=== PATIENT | female | born 1970 | race Caucasian/White ===

== ENCOUNTER 2017-08-19 10:55 | Inpatient (IN) | payer OTHER ==
[2017-08-19] MEDS ORDERED: methylPREDNISolone Sod Succ/PF 125 MG/2 ML VIAL ONE (11:41)
[2017-08-19] MEDS ORDERED: Albuterol Sulfate 1.25 MG/3 ML NEB ONE (12:14)
[2017-08-19 13:24] LABS: #Basophils 0.1 thou/uL (0.0-0.2); #Eosinphils 0.1 thou/uL (0.0-0.7); #Monocytes 0.4 thou/uL (0.11-0.59); #Neutrophils 7.2 thou/uL (1.40-6.50); %Basophils 0.6 % (0.0-1.0); %Eosinophils 1.7 % (0.0-10.0); %Lymphocytes 10.8 % (21.0-51.0); %Monocytes 4.8 % (0.0-10.0); %Neutrophils 82.1 % (42.0-75.0); Hemoglobin 17.8 g/dL (12.0-16.0); Mean Corpuscular HGB CONC 35.7 g/dL (32.0-36.0); Mean Corpuscular Hemoglobin 33.1 pg (27.0-31.0); Mean Corpuscular Volume 92.7 fl (81.0-99.0); Mean Platelet Volume 6.6 fL (7.4-10.4); Platelet Count 193 thou/uL (130-400); RBC Distribution Width 10.6 % (11.5-14.5); Red Blood Cell (RBC) Count 5.37 mill/uL (4.20-5.40); White Blood Cell (WBC) Count 8.8 thou/uL (4.8-10.8)
[2017-08-19 13:35] LABS: ALT (SGPT) 12 U/L (8-55); AST (SGOT) 13 U/L (5-34); Albumin 4.3 g/dL (3.5-5.0); Alkaline Phosphatase 67 U/L (40-150); Anion Gap 16 mmol/L (10-20); BUN (Urea Nitrogen) 10 mg/dL (7.0-18.7); Bilirubin, Total 0.8 mg/dL (0.2-1.2); Calc. Creatinine Clearance 0 mL/min (70-130); Calcium 9.7 mg/dL (7.8-10.44); Carbon Dioxide 23 mmol/L (22-29); Chloride 106 mmol/L (98-107); Estimated GFR-MDRD 79; Globulin 3.4 g/dL (2.4-3.5); Glucose 106 mg/dL (70-105); Potassium 4.1 mmol/L (3.5-5.1); Protein, Total 7.7 g/dL (6.0-8.3); Sodium 141 mmol/L (136-145)
[2017-08-19 13:39] LABS: CKMB 2.9 ng/mL (0-6.6); Troponin I Less than 0.010 ng/mL (< 0.028)
--- NOTE | 2017-08-19 13:48 | RAD ---
CHEST TWO VIEWS: 08/19/2017 COMPARISON: No prior films available for comparison. FINDINGS: The heart is normal in size. No lobar infiltrates or effusions are seen. The lungs are clear. The trachea is midline. IMPRESSION: No acute thoracic findings. POS: HOME
[2017-08-19] MEDS ORDERED: Acetaminophen 325 MG TAB PO PRN (14:43)
[2017-08-19] MEDS ORDERED: Ondansetron HCl/PF 4 MG/2 ML Vial IVP PRN (14:43)
[2017-08-19] MEDS ORDERED: Ondansetron ODT 4 MG TAB SL PRN (14:43)
[2017-08-19] MEDS ORDERED: Albuterol Sulfate 2.5 mg/3 ml Neb NEB PRN (14:44)
[2017-08-19 15:30] VITALS: BMI 22.6
--- NOTE | 2017-08-19 20:10 | HP ---
DATE OF ADMISSION: 08/19/2017 CHIEF COMPLAINT: Hypoxia. HISTORY OF PRESENT ILLNESS: A 47-year-old female who presented to [facility] Emergency Department earlier today with complaints of worsening upper respiratory symptoms over the last few days. She reports to have had clear rhinorrhea and a cough that has been intermittently productive along with subjective warmth and chills; however, this morning she felt to have tightness to her chest along with a mild dyspnea, which prompted her to present to the emergency department. Of note, the patient is a long time smoker, approximately 1 pack per day for the last 25 years. She has no formal diagnosis of COPD to this point. She was prescribed a nebulizer machine with nebules, which she has at home secondary to getting the flu at the end of last year. She states that she had not been using her nebulizer machine up until earlier today. In the emergency department, the patient notably had normal lab work and chest x-ray, however, remained hypoxic in the upper 80s even after nebulized treatments. EKG was normal. Due to her symptoms and noted hypoxia, she has been admitted for further care. The patient was formally followed by Dr. Kamara and has most recently been seen by TIM Bro in [place]. PAST MEDICAL HISTORY: Hypothyroidism, endometriosis. PAST SURGICAL HISTORY: x3, cholecystectomy, laparoscopy for removal of the right ovary due to cyst, and uterine ablation for endometriosis. SOCIAL HISTORY: She is a smoker, 1 pack per day for the last 25 years. Social alcohol use with no illicit drug use. 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 FAMILY HISTORY: Noncontributory. CURRENT MEDICATIONS: Levothyroxine 88 mcg p.o. daily. REVIEW OF SYSTEMS: General: The patient reports subjective warmth and chills. Ear, Nose, and Throat: Complains of nasal drainage and congestion. Cardiovascular: Denies chest pain or palpitations. Respiratory: Complains of shortness of breath and cough. Gastrointestinal: Denies abdominal pain, nausea , vomiting, diarrhea or constipation. Genitourinary: Denies dysuria. Musculoskeletal: Denies joint pain or swelling. Dermatologic: Denies rash. Neurologic: Denies headache. IMAGING: Chest x-ray shows no acute thoracic findings. The heart is normal in size. No lobar infiltrates or effusions are seen. Lungs are clear. Trachea is midline. LABORATORY DATA: White blood cell count is 8.8, hemoglobin is 17.8, hematocrit is 49.8, platelets are 193. Sodium 141, potassium is 4.1, BUN is 10, creatinine is 0.78, GFR 79. Glucose is 106. Normal LFTs, normal cardiac enzymes. BNP is 55.1. PHYSICAL EXAMINATION: VITAL SIGNS: Temperature is 98.4, pulse is 99, respiratory rate is 20, oxygen is 92% on 3 liters, blood pressure 122/57. GENERAL: The patient is alert and oriented, in no acute distress. HEENT: Normocephalic and atraumatic. Extraocular muscles are intact. Pupils are equal, round, and reactive to light. There is mild nasal congestion. No oropharyngeal erythema. She has O2 nasal cannula in place. NECK: Supple, with no lymphadenopathy. CARDIOVASCULAR: Regular rate and rhythm, normal S1, S2. No murmurs, rubs or gallops. RESPIRATORY: Noted rhonchi on the right with a faint expiratory wheeze in the left. No respiratory distress or accessory muscle use. ABDOMEN: Soft, nontender to palpation. No organomegaly. Normal bowel sounds. EXTREMITIES: No clubbing, cyanosis or edema. She has SCDs in place. NEUROLOGIC: Nonfocal. Cranial nerves II-XII are grossly intact. ASSESSMENT AND PLAN: 1. Hypoxia. We will provide supplemental O2 with a plan to wean as tolerated, but to keep oxygen saturation greater than 92%. We will provide nebulized treatments and IV Solu-Medrol. 2. Reactive airway disease. The patient has no formal diagnosis of chronic obstructive pulmonary disease and may consider pulmonary function testing as an outpatient. She does have nebulized medication at home for p.r.n. use. We will provide her an incentive spirometer. 3. Smoker. I have encouraged the patient to work on smoking cessation. She is amenable to placement of a nicotine patch. 4. Hypothyroidism. We will continue the patient's usual levothyroxine dose 88 mcg p.o. daily. 5. Prophylaxis. The patient has sequential compression devices and will receive Lovenox for prevention of deep venous thrombosis and pulmonary embolism. We will also provide famotidine. CODE STATUS: FULL. MTDD
[2017-08-19] MEDS: Enoxaparin Sodium 30 MG/0.3 ML SYRINGE SC SCH (21:52)
[2017-08-19] MEDS: Famotidine 20 MG TAB PO SCH (21:53)
[2017-08-19] MEDS: methylPREDNISolone Sod Succ/PF 125 MG/2 ML VIAL IVP SCH (22:03)
[2017-08-20] MEDS: methylPREDNISolone Sod Succ/PF 125 MG/2 ML VIAL IVP SCH ×3 (06:37→22:21)
[2017-08-20] MEDS: Levothyroxine Sodium 88 MCG TAB PO SCH (06:37)
[2017-08-20] MEDS: Famotidine 20 MG TAB PO SCH ×2 (08:35→20:49)
[2017-08-20] MEDS: Nicotine 21 MG PATCH TD SCH (08:36)
[2017-08-20] MEDS ORDERED: Enoxaparin Sodium 30 MG/0.3 ML SYRINGE SC SCH (09:00)
--- NOTE | 2017-08-20 16:05 | RAD ---
CHEST TWO VIEWS: 08/20/17 Comparison is made with the 08/19 study. There is no substantial difference between the two studies. N o major lobar infiltrate is seen. The lungs appear about the same today as yesterday. The heart is no rmal in size. There are no effusions or congestion. The trachea is midline. IMPRESSION: No adverse change since yesterday. POS: HOME
[2017-08-20] MEDS: Enoxaparin Sodium 30 MG/0.3 ML SYRINGE SC SCH (20:49)
[2017-08-20] MEDS: guaiFENesin ER 600 MG TAB PO SCH (20:49)
[2017-08-20] MEDS ORDERED: Loratadine 10 MG TAB PO SCH (21:00)
[2017-08-20] MEDS ORDERED: FLU VACC QS2017-18 36 mo. & older 0.5 ML SYRINGE IM ONE (21:00)
[2017-08-21 05:49] LABS: Hemoglobin 16.6 g/dL (12.0-16.0)
[2017-08-21 05:50] LABS: Platelet Count 210 thou/uL (130-400)
[2017-08-21] MEDS: methylPREDNISolone Sod Succ/PF 125 MG/2 ML VIAL IVP SCH ×3 (06:07→21:54)
[2017-08-21] MEDS: Levothyroxine Sodium 88 MCG TAB PO SCH (06:07)
[2017-08-21] MEDS: Loratadine 10 MG TAB PO SCH (08:13)
[2017-08-21] MEDS: Nicotine 21 MG PATCH TD SCH (08:13)
[2017-08-21] MEDS: guaiFENesin ER 600 MG TAB PO SCH ×2 (08:13→21:54)
[2017-08-21] MEDS: Famotidine 20 MG TAB PO SCH ×2 (08:13→21:54)
[2017-08-21] MEDS ORDERED: Mometasone/Formoterol 60 PUFF AER INH SCH (14:20)
[2017-08-21] MEDS: Mometasone/Formoterol 60 PUFF AER INH SCH (18:46)
[2017-08-21] MEDS: Enoxaparin Sodium 30 MG/0.3 ML SYRINGE SC SCH (21:53)
[2017-08-21] MEDS ORDERED: Sodium Chloride 0.65% Nasal 44 ML BOT EA NARE PRN (22:37)
[2017-08-21] MEDS: Fluticasone Propionate Nasal Spray 16 gm Bottle NASAL SCH (22:56)
[2017-08-22 06:02] VITALS: BP 128/55
[2017-08-22] MEDS: Levothyroxine Sodium 88 MCG TAB PO SCH (06:03)
[2017-08-22] MEDS: methylPREDNISolone Sod Succ/PF 125 MG/2 ML VIAL IVP SCH ×2 (06:04→14:10)
[2017-08-22] MEDS: Mometasone/Formoterol 60 PUFF AER INH SCH (06:12)
[2017-08-22] MEDS: Loratadine 10 MG TAB PO SCH (08:31)
[2017-08-22] MEDS: Famotidine 20 MG TAB PO SCH (08:31)
[2017-08-22] MEDS: guaiFENesin ER 600 MG TAB PO SCH (08:31)
[2017-08-22] MEDS: Nicotine 21 MG PATCH TD SCH (08:34)
[2017-08-22] MEDS: Fluticasone Propionate Nasal Spray 16 gm Bottle NASAL SCH (08:43)
--- NOTE | 2017-08-22 13:54 | DIS ---
DATE OF ADMISSION: 08/19/2017 DATE OF DISCHARGE: 08/22/2017 ADMISSION DIAGNOSES: Hypoxia, reactive airway disease, chronic smoker. SECONDARY DIAGNOSIS: Hypothyroidism. PROCEDURES: Chest x-ray on 08/19/2017 showed no acute thoracic findings. Chest x-ray on 08/20/2017 showed no adverse change since yesterday. HOSPITAL COURSE: A 47-year-old female presented to [facility] Emergency Department with complaints of worsening upper respiratory symptoms including persistent cough, rhinorrhea, and dyspnea with a sensation of tightness to her chest. She is a smoker for the last 25 years, approximately 1 pack per day. She received breathing treatments in the emergency department; however, remained hypoxic in the 80s and thus was admitted. She was treated with IV Solu -Medrol, scheduled neb treatments and incentive spirometry. She was provided a nicotine patch and does express desire for smoking cessation. She was gradually weaned from her supplemental oxygen and was able to maintain her O2 sats greater than 92% on room air on day of discharge. She has no formal diagnosis of COPD and thus this can be pursued in an outpatient setting via PFT. She was started on Dulera in the hospital and will be continued on Anoro. In addition, she will complete an oral tapering steroid course and we will continue her nicotine patch as well. As noted, the patient was able to wean supplemental oxygen to room air and feels much improved and is now ready to return to her home. DISPOSITION: The patient will be discharged to her home and may follow up with myself in clinic next week. DISCHARGE MEDICATIONS: She will resume her usual medication of levothyroxine 88 mcg p.o. daily. New medications will be prednisone 20 mg 2 tabs x3 days followed by 1 tab x3 days, Anoro one inhalation daily and nicotine patch. MTDD
[2017-08-22 14:52] VITALS: TEMP 98.3
== END 2017-08-22 13:55 | disposition home or self-care (01) | DRG 203 ==
LOC: BURERS 10:55 → BURMED 13:50
PROVIDERS: ADMIT Family Medicine; ATTEND Family Medicine
DX: J45.909 Unspecified asthma, uncomplicated (principal); E03.9 Hypothyroidism, unspecified; R09.02 Hypoxemia; Z79.899 Other long term (current) drug therapy
CPT/HCPCS: 36415; 71046; 80053; 82553; 82565; 83880; 84484; 85014; 85018; 85025; 85049; 87804; 90471; 90682; 93005; 94640; 94664; 94760; 96374; A4216; G0008; J1650; J2405; J2930; J7620; Q2036

== ENCOUNTER 2023-05-23 11:48 | Emergency (ER) | payer OTHER ==
[2023-05-23] MEDS ORDERED: Bacitracin 1 PK ONE (12:03)
[2023-05-23] MEDS ORDERED: Boostrix 0.5 ML (Tdap) VIAL (>/=7 yrs of age) ONE (12:04)
== END 2023-05-23 12:13 | disposition home or self-care (01) ==
LOC: BURERS 11:48
DX: S80.812A Abrasion, left lower leg, initial encounter (principal); L25.9 Unspecified contact dermatitis, unspecified cause; F17.210 Nicotine dependence, cigarettes, uncomplicated; Z23 Encounter for immunization; W54.0XXA Bitten by dog, initial encounter
CPT/HCPCS: 90471; 90715

== ENCOUNTER 2023-08-04 10:58 | Emergency (ER) | payer BC, OTHER ==
[2023-08-04] MEDS ORDERED: Albuterol 2.5 MG (0.5 mL) NEB ONE (11:16)
[2023-08-04 12:25] LABS: Troponin I Less than 0.010 ng/mL (< 0.028)
[2023-08-04] MEDS ORDERED: cefTRIAXone (ROCEPHIN) 1 GM VIAL ONE (13:03)
== END 2023-08-04 14:04 | disposition short-term general hospital (02) ==
LOC: BURERS 10:58
DX: R09.02 Hypoxemia (principal); F17.210 Nicotine dependence, cigarettes, uncomplicated; E03.9 Hypothyroidism, unspecified; Z79.899 Other long term (current) drug therapy
CPT/HCPCS: 84484; 87040; 87804; 93005; 96365; J0696; J7611

== ENCOUNTER 2023-12-09 20:27 | Emergency (ER) | payer BC | END 2023-12-09 21:36 | disposition home or self-care (01) | LOC: BURERS 20:27 | DX: L25.9 Unspecified contact dermatitis, unspecified cause (principal); F17.210 Nicotine dependence, cigarettes, uncomplicated | CPT/HCPCS: 99282 ==

== ENCOUNTER 2024-06-02 10:03 | Emergency (ER) | payer BC, OTHER ==
[2024-06-02] MEDS ORDERED: Dexamethasone 10 MG/ML VIAL ONE (10:19)
== END 2024-06-02 10:38 | disposition home or self-care (01) ==
LOC: BURERS 10:03
DX: L23.7 Allergic contact dermatitis due to plants, except food (principal); E03.9 Hypothyroidism, unspecified; F17.210 Nicotine dependence, cigarettes, uncomplicated; Z79.890 Hormone replacement therapy
CPT/HCPCS: 96372; 99282; J1100